=== PATIENT | male | born 1970 | race Two or more races ===

== ENCOUNTER 2024-02-23 02:50 | Emergency (ER) | payer OTHER, SELFPAY ==
[2024-02-23 03:27] VITALS: BMI 36.9
--- NOTE | 2024-02-23 03:46 | PD.EDWOUND ---
ED Wound/Laceration-RME/HPI General Chief Complaint: Wound/Laceration Stated Complaint: bleeding from lt cheek Time Seen by Provider: 02/23/24 03:27 Arrival date/time: 02/23/24 02:50 RME / HPI RME / HPI narrative: This section includes all my notes and documentations, including HPI, PE, and ED course. Larry Reyes MD HPI: 53-year-old male here to be evaluated with bleeding slightly left to his mouth. Was sleeping and woke up to a pool of blood. Had an episode in the past. Was told it was due to ruptured vein. Currently, he reports no bleeding. Requests a work note. No other complaints. ROS: All negative except as documented in HPI. Physical Exam: General: Alert and oriented. Eyes: Conjunctivae and lids clear. ENT: No nasal congestion. Neck: Supple. Lungs: No respiratory distress. Skin: Warm and dry. No active bleeding. Neuro: Alert and oriented X 3. Recommended outpatient hematology workup. Based on my best medical judgment, made decision no further evaluation or treatment indicated at this time. Patient understands and agrees to the discharge instructions customized and printed, see below. Discharge Instructions from Dr. Reyes printed for you: 1. Exact cause of your left facial bleeding was not determined. 2. Keep the pressure dressing we applied here for 24 hours. 3. See a private doctor on 02/24/2024 for recheck. Ask for a referral to see wellness coach, blood specialist, to make sure you don't have serious underlying blood disorders. 4. Seek immediate medical care if the bleeding starts again or with any concerns. Larry Reyes MD Course Quality Measures none Wound / Laceration Patient data External records reviewed:: None Clinical information provided by:: patient Social determinants that could affect healthcare access:: none Patient has the following chronic illnesses:: None How is presenting disease/condition affected by chronic disease/condition?: no chronic disease Evaluation data The following diagnostics were reviewed and interpreted by me:: other (specify) (No diagnostic tests ordered) Lab and/or radiology exams considered but not ordered:: None Interpretation Summary: No diagnostic tests ordered Medications / Prescriptions Medications or Prescriptions considered but not ordered:: None Medication administrations:: None Consultations Consultation(s) initiated? (list below): No Diagnosis Wound Differential Diagnosis: laceration, abrasion and avulsion of skin Most likely diagnosis given after review of the tests above:: No current active bleeding Admission Indicated Admission indicated?: not indicated Explain why admission is indicated or not indicated:: Admission criteria not met Admission Request Was there a request for admission?: No Disposition Plan Disposition Plan: Discharge Discharge Attestation Discharge Attestation: The patient and all family members were given an opportunity to ask questions and understood the discharge instructions. Discharge instructions specifically effects, indications for sooner follow up or return to the emergency department, and the expected course of current diagnosis. Patient condition: Stable Discharge Plan Plan Patient Disposition: HOME (Self Care) Prescriptions/Referrals Referrals: Alejandro Richards MD [Primary Care Provider] - In 1 week Problem List Clinical Impression: Bleeding Patient/Caregiver Discharge Instructions Discharge Activity: activity as tolerated Education Materials: First Aid: Bleeding Additional Instructions: Discharge Instructions from Dr. Reyes printed for you: 1. Exact cause of your left facial bleeding was not determined. 2. Keep the pressure dressing we applied here for 24 hours. 3. See a private doctor on 02/24/2024 for recheck. Ask for a referral to see wellness coach, blood specialist, to make sure you don't have serious underlying blood disorders. 4. Seek immediate medical care if the bleeding starts again or with any concerns. Print Language: Barbadian Stand Alone Forms: [employer] Award Info., Work/School Release, Patient Portal Info Letter
== END 2024-02-23 04:00 | disposition left against medical advice (07) ==
PROVIDERS: Emergency Provider Emergency Medicine; PCP Family Medicine
DX: K13.79 Other lesions of oral mucosa (principal)
CPT/HCPCS: 99282